=== PATIENT | male | born 1985 | race Caucasian/White ===

== ENCOUNTER 2018-07-16 19:51 | Emergency (ER) | payer BC ==
[~2018-07-16] VITALS: Ht 182.9 cm; Wt 115.7 kg
[2018-07-16 20:07] VITALS: BP_SYST 155
[2018-07-16] MEDS ORDERED: KETOROLAC TROMETHAMINE 60 MG/2 ML VIAL IM ONE (20:30)
[2018-07-16 21:14] VITALS: BP_SYST 148
== END 2018-07-16 21:14 | disposition home or self-care (01) ==
LOC: SED 19:51
DX: S63.502A Unspecified sprain of left wrist, initial encounter (principal); S43.52XA Sprain of left acromioclavicular joint, initial encounter; M54.2 Cervicalgia; Z88.0 Allergy status to penicillin; V43.52XA Car driver injured in collision with other type car in traffic accident, initial encounter; Y93.89 Activity, other specified; Y92.89 Other specified places as the place of occurrence of the external cause; Y99.8 Other external cause status
CPT/HCPCS: 29125; 73030; 73110; 96372; 99284; J1885

== ENCOUNTER 2018-11-16 00:17 | Emergency (ER) | payer BC ==
[2018-11-16] MEDS ORDERED: NACL 0.9% 1,000 ML IV ONE (00:20)
[2018-11-16] MEDS ORDERED: ONDANSETRON HCL 4 MG/2 ML VIAL IVP ONE (00:30)
== END 2018-11-16 00:34 | disposition left against medical advice (07) ==
LOC: SED 00:17
DX: K52.9 Noninfective gastroenteritis and colitis, unspecified (principal); Z53.20 Procedure and treatment not carried out because of patient's decision for unspecified reasons; Z88.0 Allergy status to penicillin
CPT/HCPCS: 99281

== ENCOUNTER 2018-11-16 01:40 | Emergency (ER) | payer BC ==
[~2018-11-16] VITALS: Ht 182.9 cm; Wt 120.2 kg
[2018-11-16 01:40] VITALS: BP_SYST 143
[2018-11-16] MEDS ORDERED: NACL 0.9% 1,000 ML IV ONE (01:48)
[2018-11-16] MEDS ORDERED: ONDANSETRON HCL 4 MG/2 ML VIAL IVP ONE (02:00)
[2018-11-16] MEDS ORDERED: MORPHINE 4 MG/ML INJ. SYRINGE IVP ONE ×2 (02:00→03:15)
[2018-11-16 02:52] LABS: BASOPHILS # (AUTO) 0.1 K/uL (0.0-0.2); BASOPHILS % (AUTO) 0.7 % (0.0-2.0); EOSINOPHILS % (AUTO) 0.2 % (0.0-4.0); HEMATOCRIT 47.4 % (36-54); HEMOGLOBIN 16.4 g/dL (14.0-18.0); LYMPHOCYTES # (AUTO) 1.3 K/uL (1.0-5.5); LYMPHOCYTES % (AUTO) 12.5 % (20.5-51.5); MEAN CORPUSCULAR HEMOGLOBIN 29 pg (27-31); MEAN CORPUSCULAR HGB CONC 35 % (32-36); MEAN CORPUSCULAR VOLUME 83 fL (79.0-98.0); MONOCYTES # (AUTO) 0.5 K/uL (0.0-1.0); MONOCYTES % (AUTO) 4.7 % (1.7-9.3); NEUTROPHILS # (AUTO) 8.1 K/uL (1.8-7.7); NEUTROPHILS % (AUTO) 81.9 % (40.0-70.0); PLATELET COUNT (AUTO) 332 K/uL (130-430); RED BLOOD CELL COUNT(AUTO) 5.74 MIL/uL (4.2-6.2); RED CELL DISTRIBUTION WIDTH 12.1 % (9.0-15.0)
[2018-11-16 03:09] LABS: CALCIUM 8.7 mg/dL (8.4-11.0); CREATININE 0.87 mg/dL (0.55-1.30); POTASSIUM 3.6 mmol/L (3.5-5.1)
[2018-11-16 03:13] LABS: ALBUMIN 4.3 g/dL (3.4-4.8); TOTAL BILIRUBIN 0.9 mg/dL (0.0-1.0)
[2018-11-16 03:21] LABS: PROTHROMBIN TIME 10.3 SECS (9.5-12.5)
[2018-11-16 03:59] LABS: BILIRUBIN,URINE NEGATIVE (NEGATIVE); BLOOD, URINE NEGATIVE (NEGATIVE); CLARITY/URINE CLEAR (CLEAR); COLOR,URINE YELLOW (YELLOW); GLUCOSE,URINE NEGATIVE (NEGATIVE); KETONES,URINE NEGATIVE (NEGATIVE); LEUKOCYTE ESTERASE ,URINE NEGATIVE (NEGATIVE); NITRITE, URINE NEGATIVE (NEGATIVE); PH,URINE 7.5 (5.0-8.0); PROTEIN URINE NEGATIVE (NEGATIVE); UROBILINOGEN,URINE 0.2 (0.2-1.0)
[2018-11-16 05:18] VITALS: BP_SYST 133
== END 2018-11-16 05:18 | disposition home or self-care (01) ==
LOC: SED 01:40
DX: K52.9 Noninfective gastroenteritis and colitis, unspecified (principal); F41.9 Anxiety disorder, unspecified; R03.0 Elevated blood-pressure reading, without diagnosis of hypertension; Z88.0 Allergy status to penicillin
CPT/HCPCS: 36415; 71045; 74176; 80053; 81003; 82150; 83605; 83690; 85025; 85610; 85730; 87040; 96361; 96374; 96375; 96376; 99284; J2270; J2405; J7030